=== PATIENT | female | born 1965 | race Caucasian/White ===

== ENCOUNTER 2022-06-26 16:56 | Emergency (ER) | payer BC ==
[~2022-06-26] VITALS: Ht 165.1 cm; Wt 127.0 kg
[2022-06-26 17:03] VITALS: BP 162/96
--- NOTE | 2022-06-26 18:03 | NUR ---
57 Y/O FEMALE BIB SELF C/O RIGHT MIDDLE FINGER PAIN S/P SCRUBBING THE FLOOR/CARPET. PER PT HER FINGER "SNAGGED ON THE CARPET AND SHE HEARD A POP", NOTED 1ST PHALANGE IN 90 DEGREE ANGLE. STATES 2/10 PAIN WITH MOVEMENT, BILLING ADMINISTRATOR LESS THAN 3 SECONDS, DENIES ANY NUMBNESS OR TINGLING NKA
[2022-06-26] MEDS ORDERED: LIDOCAINE 1% 500 MG/ 50 ML VIAL INJ ONE (18:20)
--- NOTE | 2022-06-26 19:36 | NUR ---
Patient discharged with v/s stable. Written and verbal after care instructions given and explained. Patient verbalized understanding. Ambulatory with steady gait. All questions addressed prior to discharge. Advised to follow up with PMD.
== END 2022-06-26 19:36 | disposition home or self-care (01) ==
LOC: MED 16:56
DX: S63.252A Unspecified dislocation of right middle finger, initial encounter (principal); X99.9XXA Assault by unspecified sharp object, initial encounter; Y93.E5 Activity, floor mopping and cleaning; Y92.89 Other specified places as the place of occurrence of the external cause; Y99.8 Other external cause status
CPT/HCPCS: 26770; 73140; 99284